=== PATIENT | female | born 1945 | race Caucasian/White ===

== ENCOUNTER 2021-03-26 10:34 | Emergency (ER) | payer OTHER ==
[~2021-03-26] VITALS: Ht 167.6 cm; Wt 78.9 kg
[2021-03-26 11:06] VITALS: BP 132/63
[2021-03-26] MEDS ORDERED: ONDANSETRON 4 MG ODT PO ONE (12:45)
[2021-03-26] MEDS ORDERED: MORPHINE SULFATE 4 MG/ML SYR IM ONE (12:45)
--- NOTE | 2021-03-26 12:56 | NUR ---
75/F BIB SELF FOR C/O RIGHT HIP PAIN RADIATING DOWN RIGHT LEG X1 WEEK. DENIES INJURY OR TRAUMA, REPORTS TAKING ADVIL WITH NO RELIEF. REPORTS 8/10 THROBBING PAIN THAT WORSENS WITH WALKING AND CERTAIN MOVEMENTS, STATES "I THINK IT SCIATICA PAIN." DENIES HX OF SCIATICA PAIN, PATIENT ABLE TO AMBULATE WITHOUT ASSISTANCE.
[2021-03-26] MEDS ORDERED: KETOROLAC 30 MG/ML VIAL IM ONE (14:55)
[2021-03-26] MEDS ORDERED: LID5T TP (16:16)
[2021-03-26] MEDS ORDERED: ACET-8386 PO (16:16)
--- NOTE | 2021-03-26 16:21 | NUR ---
Patient discharged with v/s stable. Written and verbal after care instructions given and explained. Patient alert, oriented and verbalized understanding of instructions. Ambulatory with steady gait. All questions addressed prior to discharge. ID band removed. Patient advised to follow up with PMD. Rx of Hydrocodone/Acetaminophen, Liodcaine Hyd given. Patient educated on indication of medication including possible reaction and side effects. Opportunity to ask questions provided and answered. DISCHARGED BY NADER POE @ [id number]
== END 2021-03-26 16:21 | disposition home or self-care (01) ==
LOC: MED 10:34
DX: M54.41 Lumbago with sciatica, right side (principal); M25.551 Pain in right hip; I48.91 Unspecified atrial fibrillation; Z79.899 Other long term (current) drug therapy; Z79.891 Long term (current) use of opiate analgesic; Z88.2 Allergy status to sulfonamides
CPT/HCPCS: 72100; 73502; 96372; 99284; J1885; J2270; Q0162